=== PATIENT | male | born 1960 | race Caucasian/White ===

== ENCOUNTER 2024-06-19 11:09 | Emergency (ER) | payer OTHER, SELFPAY ==
[2024-06-19 11:11] VITALS: BP 155/84
--- NOTE | 2024-06-19 13:17 | ED.GENMED ---
History of Present Illness
General
Chief Complaint: Musculo-Skeletal Complaint
Source: patient
Exam Limitations: none
Time Seen by Provider: 06/19/24 12:22
Nursing documentation reviewed up to this point in time: agreed with
History of Present Illness
History of Present Illness:
Patient is a 64-year-old male who presents to the ER for evaluation. Patient slipped onto asphalt yesterday and landed on his left knee but twisted his right knee and right leg. He complains of pain to the right medial knee that radiates to his
right thigh. He complains of pain to the right medial thigh and can barely walk. He did something similar to this a couple weeks ago and was prescribed meloxicam Tylenol with codeine and Flexeril. He did take the Tylenol with codeine this morning
and Flexeril but did not take the meloxicam.
Past History
Past History
ED Past Medical History: HTN
Social History
Tobacco: Smoker
Review of Systems
Review of Systems
Allergies reviewed?: Yes
All Other Systems: ROS reviewed and negative except as documented in HPI and ROS
Constitutional: Reports no symptoms
Musculoskeletal: Reports other (Right knee pain, thigh pain)
Skin: Reports no symptoms
Neurological: Reports no symptoms
Phy Exam
General Physical Exam
General Presentation: no apparent distress
General age: appears stated age
General Skin: warm and dry
General Mental: alert
Neurological Exam
Neurological Exam: alert and oriented x3
Musculoskeletal Exam
Musculoskeletal Exam: other (Right lower extremity strong pulses mild swelling to right knee tender along the medial aspect pain with flexion pain with lifting leg up tender along the medial aspect of the right thigh)
Skin Exam
Skin Exam: normal color and warm/dry
Psychiatric Exam
Psychiatric Exam: normal mood/affect
Course
Orders/Labs/Results
Orders:
Orders
06/19/24 11:15
Knee, Right 4 or More Views [CR Knee- Right 4 Or More View*] Urgent
Comment:
Reason For Exam: pain after a fall
06/19/24 13:17
Femur, Right 2 View [CR Femur - Right Min 2 Vw] Urgent
Comment:
Reason For Exam: trauma
06/19/24 13:19
Ketorolac [Toradol] 30 mg IM NOW STA
06/19/24 14:55
Knee Immobilizer Right-Treatme ONCE
Vital Signs
Initial and Last Documented VS:
Initial Vital Signs
Temp Pulse Resp BP Pulse Ox
98.2 F 72 18 155/84 97
06/19/24 11:11 06/19/24 11:11 06/19/24 11:11 06/19/24 11:11 06/19/24 11:11
Last Documented Vital Signs
Temp Pulse Resp BP Pulse Ox
98.2 F 72 18 155/84 97
06/19/24 11:11 06/19/24 11:11 06/19/24 11:11 06/19/24 11:11 06/19/24 11:11
MDM/Problems Addressed
Differential Diagnosis Includes:
not limited to: Knee strain muscle strain less likely fracture
MDM/Problems Addressed:
Symptoms are consistent with a strain of right thigh. There is no obvious swelling to the thigh. The patient complains of some knee pain most of his pain is in the thigh. X-rays of knees and femur were done. X-ray of the knee shows mild
suprapatellar patellar joint effusion no acute findings on femur x-ray. Patient was given IM Toradol here which did improve symptoms. He is able to bear weight will DC with immobilizer for support he does have a prescription for meloxicam as well
as pain medication and Flexeril as needed. He wishes to follow-up with his program specialist at [facility].
*Critical Care Note
Total Time (30-74mins, 75-104mins- exclusive of procedures): Not Applicable
ED Attending Note
-
Portions of this chart may have been created with voice recognition software.� Occasional wrong word or��sound alike� substitutions may have occurred due to the inherent limitations of voice recognition software.
Discharge Plan
Departure
Patient Disposition: Home (Routine Discharge)
Date of Disposition: 06/19/24
Time of Disposition: 15:38
Patient with high blood pressure during this ER visit?: Yes
Condition: Fair
Covid-19: Not Applicable
Discharge Problem:
Acute leg pain, Muscle strain of thigh
Instructions: Knee Immobilizer (DC), Lower Extremity Muscle Strain (DC)
Prescriptions:
No Action
lisinopril 10 mg Tablet
10 mg PO DAILY
escitalopram oxalate 10 mg Tablet
10 mg PO DAILY
lidocain-me.kykvzqc-azrx-xgbzn 4-20-0.025-5 % Adhesive Patch,Medicated
1 patch TOPICAL PRN PRN (Reason: for feet and face pain)
amitriptyline
50 mg PO DAILY
gabapentin
2,400 mg PO HS
Referrals:
Jared Linares MD [Family Provider] -
Activity Restrictions/Additional Instructions:
As discussed ice the affected area for the next 24 hours 20 minutes at a time several times a day. Keep elevated as much as possible use a cane for support. Wear immobilizer for support remove at night while sleeping. You may continue to take
your meloxicam(which is your anti-inflammatory) or you may stop and switch to Motrin/ibuprofen 600 mg every 8 hours with food.
In addition you may take your pain medication as needed
Follow-up with your orthopedic doctor next week .Call to make an appointment. return if any worsening of symptoms
Discharge Date and Time
Print Language: DIVEHI
[2024-06-19] MEDS: TORADOL 30 MG IM (13:32)
[2024-06-19 16:25] VITALS: BP 136/83
== END 2024-06-19 16:29 | disposition home or self-care (01) ==
LOC: EMR 11:09
PROVIDERS: EMERGENCY PHYSICIAN Student in an Organized Health Care Education/Training Program; FAMILY PHYSICIAN Family Medicine
DX: S76.919A Strain of unspecified muscles, fascia and tendons at thigh level, unspecified thigh, initial encounter (principal); W01.0XXA Fall on same level from slipping, tripping and stumbling without subsequent striking against object, initial encounter; I10 Essential (primary) hypertension; F17.200 Nicotine dependence, unspecified, uncomplicated
CPT/HCPCS: 99283; 96372; 73552; 73564

== ENCOUNTER 2024-09-29 09:23 | Emergency (ER) | payer OTHER, SELFPAY ==
[2024-09-29 09:29] VITALS: BP 152/85
--- NOTE | 2024-09-29 12:06 | ED.GENMED ---
History of Present Illness
General
Chief Complaint: Abdominal Pain
Source: patient
Time Seen by Provider: 09/29/24 11:51
History of Present Illness
History of Present Illness:
64-year-old male with past medical history of TBI, hypertension presenting to the emergency department for evaluation after he was lifting a heavy table 2 days ago and started to feel discomfort into his groin and then noticed a lump yesterday which
has gradually gotten a little bit bigger in size and more painful. Patient contacted primary care provider who recommended patient come to the ER for further evaluation. Patient denies any fevers, vomiting, bowel changes or urinary symptoms. He
does believe that he has had an umbilical hernia repair in the past as well as possible inguinal hernia.
Past History
Past History
ED Past Medical History: HTN and Other (TBI)
ED Past Surgical History: Orthopedic and Other
Social History
Tobacco: Smoker
Alcohol: None
Drug: None
Personal:
Living: with family
Employment: Employed
Review of Systems
Review of Systems
All Other Systems: ROS reviewed and negative except as documented in HPI and ROS
Phy Exam
Physical Exam
Physical Exam:
GENERAL: Alert , in no apparent distress
EYE: conjunctiva clear
Head: Normocephalic atraumatic
NECK: Supple,
ENT: mmm.
LUNGS: no acute respiratory distress
NEUROLOGICAL: Alert and oriented
GENITOURINARY: small inguinal hernia on the left. reducible but tender/painful. No overlying erythema. Unfortunately will spontaneously reoccur after reducing hernia
SKIN: Warm and dry, skin intact.
MUSCULOSKELETAL: well perfused.
PSYCH: Normal and appropriate interaction.
Scores
Heart Failure Risk
Heart Failure Risk Score: Not Applicable
Heart Score for Chest Pain Patients
STEMI patient?: Not applicable
Withdrawal Assessment of Alcohol
Withdrawal Assessment Completed?: Not applicable
Course
Vital Signs
Initial and Last Documented VS:
Initial Vital Signs
Temp Pulse Resp BP Pulse Ox
98.0 F 60 18 152/85 99
09/29/24 09:29 09/29/24 09:29 09/29/24 09:29 09/29/24 09:29 09/29/24 09:29
Last Documented Vital Signs
Temp Pulse Resp BP Pulse Ox
98.0 F 60 18 152/85 99
09/29/24 09:29 09/29/24 09:29 09/29/24 09:29 09/29/24 09:29 09/29/24 09:29
MDM/Problems Addressed
Differential Diagnosis Includes:
Uncomplicated direct versus indirect left inguinal hernia, currently no symptoms to suggest strangulation or incarceration, muscle injury
MDM/Problems Addressed:
64-year-old male presenting to the ER for evaluation at the request of primary care provider for left inguinal hernia. Patient's exam is most consistent with a nonemergent left inguinal hernia. No symptoms to suggest incarceration or
strangulation. Discussed management of hernia with the patient. I reached out to on-call general surgery team who states patient can follow-up as an outpatient. Discussed return precautions and patient is agreeable with this plan.
*Pulse Oximetry
Patient hypoxic: no
*Critical Care Note
Total Time (30-74mins, 75-104mins- exclusive of procedures): Not Applicable
ED Attending Note
-
Portions of this chart may have been created with voice recognition software.� Occasional wrong word or��sound alike� substitutions may have occurred due to the inherent limitations of voice recognition software.
Discharge Plan
Departure
Patient Disposition: Home (Routine Discharge)
Date of Disposition: 09/29/24
Time of Disposition: 12:06
Patient with high blood pressure during this ER visit?: Yes
Discharge Problem:
Hernia, inguinal, left
Instructions: Groin Hernia (DC)
Prescriptions:
No Action
lisinopril 10 mg Tablet
10 mg PO DAILY
escitalopram oxalate 10 mg Tablet
10 mg PO DAILY
lidocain-me.wqdgboa-mndp-dvwhw 4-20-0.025-5 % Adhesive Patch,Medicated
1 patch TOPICAL PRN PRN (Reason: for feet and face pain)
amitriptyline
50 mg PO DAILY
gabapentin
2,400 mg PO HS
Referrals:
Julius Wise MD [Active] - (Surgery - Please call for appointment VIDYA)
Remington Le MD [Family Provider] -
Interventions
Interventions:
*Risk Screen - Suicide Last Done: 09/29/24 09:29
*General Assessment Last Done: 09/29/24 09:29
*Neglect/Abuse Screening Last Done: 09/29/24 09:29
ED- Fall Risk Assessment Last Done: 09/29/24 12:10
*ED COVID-19 Vaccine History Last Done: 09/29/24 12:10
*Nursing Disposition Last Done: 09/29/24 12:10
EO-Dbhjum-Okcivzpymj Assessment Last Done: 09/29/24 12:10
Discharge Date and Time
Discharge Date/Time: 09/29/24 12:10
Print Language: PERSIAN
== END 2024-09-29 12:10 | disposition home or self-care (01) ==
LOC: EMR 09:23
PROVIDERS: EMERGENCY PHYSICIAN Student in an Organized Health Care Education/Training Program; FAMILY PHYSICIAN Family Medicine
DX: K40.90 Unilateral inguinal hernia, without obstruction or gangrene, not specified as recurrent (principal); X50.0XXA Overexertion from strenuous movement or load, initial encounter; I10 Essential (primary) hypertension; F17.200 Nicotine dependence, unspecified, uncomplicated
CPT/HCPCS: 99282

== ENCOUNTER 2024-10-21 06:12 | Day surgery (SDC) | payer OTHER, SELFPAY ==
[2024-10-21] VITALS (8 sets, daily range): BP systolic 119–142; BP diastolic 65–82
[2024-10-21] MEDS: TYLENOL 1000 MG PO (09:18)
[2024-10-21] MEDS: NORMOSOL-R/PLASMALYTE-A 1000 IV (09:19)
--- NOTE | 2024-10-21 09:56 | W.SUR.PREOP ---
Pre-Operative Surgical Note
-
I have examined this patient prior to the performance of the scheduled procedure.
The patient's condition is unchanged from the time of the current History and
Physical and the patient is able to undergo the scheduled procedure.
--- NOTE | 2024-10-21 12:48 | W.IMMPOSTOP ---
Surgical Immed Post Op Note
-
Primary Surgeon: Naresh Stoddard MD
Assisting Surgeon: None
Pre-op Diagnosis: Left inguinal hernia
Post-op Diagnosis: Recurrent left inguinal hernia
Procedure Performed:
1. Robotic recurrent left inguinal hernia repair with mesh
2. Lysis of adhesions
Anesthesia Type: General
Specimen / Cultures: 1. Left cord lipoma
Estimated Blood Loss: 7 cc
Complications: None
Operative Findings: Weakness noted in the direct space. There was a significant amount of sigmoid colon adherent to the peritoneum which was lysed. The preperitoneal space was very scarred in and we did encounter unexpectedly a mesh placed in the
left preperitoneal space consistent with a prior left inguinal repair which the patient had not mentioned preoperatively. There was significant scarring medially over the bladder as well as to the inferior epigastrics. One of the veins had to be
ligated. This was inherent to the dissection and could not be avoided. The patient had a small shallow direct hernia as well as a large cord lipoma that was reduced and resected. Critical view of the MPO could not be fully achieved as the bladder
was significantly scarred to the pubic brim so we did not achieve 2 cm of overlap inferiorly. The MPO was reinforced with a large mid weight Bard 3D max left uncoated polypropylene mesh.
--- NOTE | 2024-10-21 12:52 | OR.RPT ---
Operative Report
Operative Report
Patient Name: Saad Lyles
: 1960
Date of Operation: 10/21/2024
Pre-op Diagnosis: Left inguinal hernia
Post-op Diagnosis: Recurrent left inguinal hernia
Procedure Performed:
1. Robotic recurrent left inguinal hernia repair with mesh (PENNY approach)
2. Lysis of adhesions
Surgeon(s):
Dr. Stoddard
Sales Manager [place](s):
BRIANNA Irby
Anesthesia Type: General
Specimen / Cultures:
1. Left cord lipoma
Estimated Blood Loss: 7 cc
Drains/Lines/Implants: Large 3D Max Bard mid weight uncoated polypropylene mesh
Complications: None
Indication for surgery: This is a 64-year-old male with only prior abdominal surgical history reported as an open umbilical hernia repair with mesh. He was noted to have reducible left inguinal hernia on exam and no obvious scars other than his
periumbilical one in the office. Following review of therapeutic options they have elected to undergo a minimally invasive repair.
Operative Findings: Weakness noted in the direct space. There was a significant amount of sigmoid colon adherent to the peritoneum which was lysed. The preperitoneal space was very scarred in and we did encounter unexpectedly a mesh placed in the
left preperitoneal space consistent with a prior left inguinal repair which the patient had not mentioned preoperatively. There was significant scarring medially over the bladder as well as to the inferior epigastrics. One of the veins had to be
ligated. This was inherent to the dissection and could not be avoided. The patient had a small shallow direct hernia as well as a large cord lipoma that was reduced and resected. Critical view of the MPO could not be fully achieved as the bladder
was significantly scarred to the pubic brim so we did not achieve 2 cm of overlap inferiorly. The MPO was reinforced with a large mid weight Bard 3D max left uncoated polypropylene mesh.
Details of the operation:
The patient was brought to the Operating Room and placed in the supine position with the arms tucked. IV antibiotics were infused and Venodyne stockings placed. Following uneventful induction of general endotracheal anesthesia, an orogastric tube
were placed. The abdomen was prepped and draped in the usual sterile fashion. Additional small incisional scars were noted across the abdomen consistent with her prior laparoscopic procedure. He also had a PEG tube which was noted preoperatively.
The abdomen was entered using a Veress technique which required 1 pass, pneumoperitoneum to 15 mmHg was obtained without difficulty. An 8mm trochar was passed through the abdominal wall roughly 23 cm cephalad to the inguinal canal, taking care to
ensure we were well above his umbilical mesh, which we could readily palpate. We then confirmed that no inadvertent injury was made while passing the trocar or Veress needle. We then placed two additional 8 mm ports in the left upper and right
upper quadrants. We then docked the robot with a Prograsper in the left hand port and monopolar scissors in the right. Upon entry there was a significant adhesions of the sigmoid colon over the left inguinal space though I could make out a small
direct to the weakness. There was no hernia noted on the contralateral side. We began by a carefully lysing the adhesions of the sigmoid colon from the peritoneal wall, this took roughly 20 minutes. We then began by creating a flap at the level
of the ASIS laterally working our way medially to the medial umbilical fold. It was immediately clear that this space had been previously entered as there is a significant amount of scar tissue. As we continued our dissection we encountered
mesh. There was significant amount of adhesions to the surrounding tissue and the direct hernia sac as well as the epigastrics and the bladder medially. It appears as though the mesh had moved or was placed too laterally without good medial
coverage and a cord lipoma had not been removed at his initial operation. Staying onto the mesh and peritoneum we were able to circumferentially dissect down to the underlying spermatic cord and testicular vessels which were preserved and then
medially onto the Kevin's ligament. We were not able to dissect 2 cm below the pubic rami over the bladder as there was significant scar tissue in this area and I was afraid that further dissection would likely result in a injury to the bladder.
There was a very large cord lipoma that was identified reduced and removed. There was a wide but shallow direct defect. No femoral defect was identified. The floor was then reinforced with a large left 3D max Bard mid weight uncoated
polypropylene mesh that was secured to Kevin's ligament with 2-0 Vicryl, and superior laterally. The flap was then closed with a running 2-0 barbed monocryl suture ensuring that the tail was cut flush with the medial fat pad so that no barbs were
exposed. During the closure of the flap an Angiocath was inserted and 20 cc of quarter percent Marcaine was instilled. The area in the flap cavity was then evacuated of air confirming that the mesh was flush and there were no folds. A small rent
in the peritoneum was noted and closed with 2-0 Vicryl. All needles and instruments were then removed and the robot was undocked. The abdomen was then desufflated, and pneumoperitoneum evacuated. All skin sites were then closed with 4-0 Monocryl
followed by Dermabond. Counts were correct and overall, the patient tolerated the procedure well and was taken to the Recovery Room postoperatively in stable condition.
I was the attending physician and performed the procedure with assistance of the MACHINE SCALLOP CUTTER above. I was present for all portions of the case, excluding skin closure.
Naresh Stoddard MD
== END 2024-10-21 15:48 | disposition home or self-care (01) ==
LOC: SDS 06:12
PROVIDERS: ATTENDING PHYSICIAN Surgery
DX: K40.91 Unilateral inguinal hernia, without obstruction or gangrene, recurrent (principal); D17.6 Benign lipomatous neoplasm of spermatic cord; Z93.1 Gastrostomy status; K66.0 Peritoneal adhesions (postprocedural) (postinfection)
CPT/HCPCS: 49651; 88304; 93005; C1781

== ENCOUNTER 2025-04-30 12:58 | Emergency (ER) | payer SELFPAY ==
[2025-04-30 12:59] VITALS: BP 138/101
[2025-04-30 13:44] VITALS: BMI 25.1
[2025-04-30] MEDS: ZOFRAN ODT (ORALLY DISINTEGRATING) 4 MG PO (14:10)
[2025-04-30] MEDS: PERCOCET 5/325 1 TABLET PO (14:10)
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
[2025-04-30 16:36] VITALS: BP 148/100
== END 2025-04-30 16:37 | disposition home or self-care (01) ==
LOC: EMR 12:58
PROVIDERS: EMERGENCY PHYSICIAN Student in an Organized Health Care Education/Training Program; FAMILY PHYSICIAN Family Medicine
DX: R11.2 Nausea with vomiting, unspecified (principal); F07.81 Postconcussional syndrome; I10 Essential (primary) hypertension; F17.200 Nicotine dependence, unspecified, uncomplicated
CPT/HCPCS: 99284; 70450

== ENCOUNTER 2025-06-28 16:58 | Emergency (ER) | payer OTHER, SELFPAY ==
[2025-06-28 17:04] VITALS: BP 125/73
[2025-06-28 17:42] LABS: Hematocrit 42.6 % (39.0-52.0); Hemoglobin 14.2 g/dL (13.0-18.0); Mean Corp Hgb Conc. 33.3 g/dL (33.0-37.0); Mean Corpuscular Volume 88.0 fL (80.0-94.0); Nucleated Red Blood Cells % 0 % (-); Platelet Count 182 10^3/uL (130-400); Red Cell Dist. Width 13.5 % (11.5-14.5)
[2025-06-28 17:46] LABS: ALT (SGPT) 27 U/L (0-50); AST (SGOT) 25 U/L (17-59); Albumin 4.5 g/dl (3.5-5.0); Alkaline Phosphatase 59 U/L (38-126); Blood Urea Nitrogen 16 mg/dl (9-20); Calcium 9.5 mg/dl (8.4-10.2); Carbon Dioxide 26 mmol/L (22-30); Chloride 106 mmol/L (98-107); Glucose 118 mg/dl (70-99); Potassium 4.2 mmol/L (3.5-5.1); Sodium 140 mmol/L (135-145); Total Protein 7.3 g/dl (6.3-8.2); eGFR > 60.00
[2025-06-28 20:00] VITALS: BP 132/78
[2025-06-28 20:58] VITALS: BMI 25.1
[2025-06-28 22:23] VITALS: BP 116/88
[2025-06-28] MEDS: NEURONTIN 300 MG PO (23:24)
[2025-06-28] MEDS: TORADOL 15 MG IV (23:26)
[2025-06-28] MEDS: NSS 1000 IV (23:27)
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
[2025-06-29 01:05] VITALS: BP 103/75
[2025-06-29 02:13] VITALS: BP 117/76
== END 2025-06-29 02:44 | disposition home or self-care (01) ==
LOC: EMR 16:58
PROVIDERS: Emergency Medicine; Physician Assistant; EMERGENCY PHYSICIAN Student in an Organized Health Care Education/Training Program; FAMILY PHYSICIAN Family Medicine
DX: K40.91 Unilateral inguinal hernia, without obstruction or gangrene, recurrent (principal); I10 Essential (primary) hypertension; F32.A Depression, unspecified; F17.200 Nicotine dependence, unspecified, uncomplicated; Z79.899 Other long term (current) drug therapy; Z86.73 Personal history of transient ischemic attack (TIA), and cerebral infarction without residual deficits
CPT/HCPCS: 99284; 96374; 96361; 74177; 80053; 83605; 85025; Q9967

== ENCOUNTER 2025-08-25 06:27 | Day surgery (SDC) | payer OTHER, SELFPAY ==
[2025-08-15 11:29] VITALS: BMI 26.0
[2025-08-25] VITALS (7 sets, daily range): BP systolic 110–127; BP diastolic 61–78; BMI 26.0
--- NOTE | 2025-08-25 08:15 | HP.FOC2 ---
Focused History & Physical
Chief Complaint
HPI:
Chief Complaint: Recurrent left inguinal hernia
HPI / Indication for Planned Procedure: Open recurrent left inguinal hernia repair with mesh.
Relevant Past Medical History: Negative
Relevant Social History: Negative
Relevant Family History: Negative
Relevant Past Surgical History: Negative
Review of Systems
Review of Pertinent Systems: All Systems Negative
Medication
See Medication form for detailed medications: Yes
Medication List (including Herbals & OTC):
lisinopril 10 mg tablet 10 mg PO DAILY 06/18/23
amitriptyline 50 mg tablet 50 mg PO HS 10/13/24
gabapentin 800 mg tablet 2,800 mg PO HS 10/13/24
grape seed extract 50 mg capsule 50 mg PO DAILY 10/13/24
milk thistle 500 mg capsule 500 mg PO DAILY 10/13/24
omega 5-xmr-ucv-fish oil 1,000 mg (120 mg-180 mg) capsule (Fish Oil) 1 cap PO DAILY 10/13/24
bupropion HCl 150 mg 24 hr tablet, extended release 150 mg PO DAILY 08/18/25
Medications Reviewed: Yes
Allergies and Reactions
Patient has Allergies: No
Noted Allergies and Reactions:
Allergy/AdvReac Type Severity Reaction Status Date / Time
No Known Allergies Allergy Verified 08/25/25 08:12
Pertinent Physical Exam
All Other Systems: Negative
Head/Neck: Normal
Diagnosis / Assessment
This is a 65-year-old male who presents with a recurrent left inguinal hernia in the setting of 2 prior MIS repairs. Will plan for an open left inguinal hernia repair with mesh.
Plan / Procedure
This is a 65-year-old male who presents with a recurrent left inguinal hernia in the setting of 2 prior MIS repairs. Will plan for an open left inguinal hernia repair with mesh.
Anesthesia/Sedation to be done by Anesthesia Provider: Yes
[2025-08-25] MEDS: TYLENOL 1000 MG PO (08:21)
[2025-08-25] MEDS: NORMOSOL-R/PLASMALYTE-A 1000 IV (08:35)
--- NOTE | 2025-08-25 10:09 | W.IMMPOSTOP ---
Surgical Immed Post Op Note
-
Primary Surgeon: Naresh Stoddard MD
Assisting Surgeon: None
Pre-op Diagnosis: Recurrent left inguinal hernia
Post-op Diagnosis: Same
Procedure Performed: Open recurrent sliding left inguinal hernia repair with mesh
Anesthesia Type: General
Specimen / Cultures: None
Estimated Blood Loss: 3 cc
Complications: None
Operative Findings: Recurrent left indirect inguinal hernia with a sliding component. This was repaired with a Bard soft 7.5 x 15 cm uncoated polypropylene mesh cut to size and a standard Beth fashion.
--- NOTE | 2025-08-25 10:13 | OR.RPT ---
Operative Report
Operative Report
Patient Name: Saad Lyles
: 1960
Date of Operation: 08/25/2025
Preoperative Diagnosis: Recurrent left inguinal hernia
Postoperative Diagnosis: Recurrent left inguinal hernia, cord lipoma
Procedure(s):
1. Open recurrent left sliding inguinal hernia repair with mesh
2. Excision of lesion of a spermatic cord lipoma ([id number])
Surgeon(s):
Dr. Stoddard
Recreational Director(s):
Marilin Concepcion NP
Anesthesia: General/LMA
Estimated Blood Loss: 3 cc
Urine Output: None
Drains/Lines/Implants: 15x7.5cm Bard Soft uncoated polypropylene Mesh cut to size
Specimen / Cultures:
None
Indication for surgery: The patient has a history of 2 prior minimally invasive left inguinal hernia repairs with mesh complicated by a recurrent bulge and groin pain which was confirmed to be a recurrent left inguinal hernia on CT. Following
review of therapeutic options they elected to undergo an open repair
Operative Findings: Recurrent left indirect inguinal hernia with a sliding component. This was repaired with a Bard soft 7.5 x 15 cm uncoated polypropylene mesh cut to size and a standard Beth fashion.
Details of the operation:
After induction of general anesthesia, the patient was clipped, prepped and draped in the supine position. A team timeout was performed confirming administration of DVT prophylaxis, IV antibiotics and SCDs. The ASIS and pubic tubercle were marked
and an incision was chosen along the course of a skin line. The skin was anesthetized with Lidocaine. An incision was made through the skin line and dissection carried down through subcutaneous tissue and Ifrah's fascia. The superficial epigastric
vein was identified and ligated. A Small Dre wound retractor was used to provide exposure. The external oblique fibers were then divided in the direction of travel. The ilioinguinal nerve was identified and ligated at the level of the internal
bleak. Dissection was carried down to the floor, which revealed the following:
At the site of the indirect (internal) ring, there was a moderate size protrusion of preperitoneal fat, the hernia sac was identified, dissected and reduced off the cord structures. This was found to be sliding inguinal hernia with fat and part of
the colon wall as part of the hernia sac.
A residual cord lipoma was also identified and resected
The direct space, floor of the canal revealed no weakness.
The floor of the canal was then reconstructed by placing a 15 x 7.5 cm Bard soft uncoated polypropylene mesh trimmed to size and secured it in place with interrupted 0-PDS sutures medially at the pubic tubercle, inferiorly along the inguinal
ligament, laterally/superiorly in the conjoint tendon. A slit was made in the mesh just wide enough to accommodate the cord this was also reapproximated with the PDS suture. Care was taken not to injure or entrap any nerves. The external oblique
fibers were then closed using a running 2-0 Vicryl suture. Ifrah's fascia was then closed with interrupted 3-0 Vicryl suture. The skin was closed in layers with interrupted 3-0 vicryl deep dermals followed by a running subcuticular 4-0 Monocryl
followed by dermabond. The patient returned to the Recovery Room in stable condition. Sponge and instrument counts were correct.
I was the attending physician and performed the procedure with assistance of the RN MEDICATION above. The assistance of the RN MEDICATION was required due to the complexity of the procedure. During the procedure Marilin assisted with retraction, resection, and closure
of the wound. I was present for all portions of the case, excluding skin closure.
Naresh Stoddard MD
== END 2025-08-25 12:32 | disposition home or self-care (01) ==
LOC: SDS 06:27
PROVIDERS: ATTENDING PHYSICIAN Surgery; FAMILY PHYSICIAN Family Medicine
DX: K40.91 Unilateral inguinal hernia, without obstruction or gangrene, recurrent (principal)
CPT/HCPCS: 49520; 93005

== ENCOUNTER 2025-09-09 11:02 | Emergency (ER) | payer OTHER, SELFPAY ==
[2025-09-09 11:16] VITALS: BP 116/78
[2025-09-09 12:22] LABS: Hematocrit 45.3 % (39.0-52.0); Hemoglobin 15.3 g/dL (13.0-18.0); Mean Corp Hgb Conc. 33.8 g/dL (33.0-37.0); Mean Corpuscular Volume 89.5 fL (80.0-94.0); Nucleated Red Blood Cells % 0 % (-); Platelet Count 197 10^3/uL (130-400); Red Cell Dist. Width 13.2 % (11.5-14.5)
[2025-09-09 12:35] LABS: ALT (SGPT) 24 U/L (0-50); AST (SGOT) 25 U/L (17-59); Albumin 4.6 g/dl (3.5-5.0); Alkaline Phosphatase 65 U/L (38-126); Blood Urea Nitrogen 19 mg/dl (9-20); Calcium 9.8 mg/dl (8.4-10.2); Carbon Dioxide 28 mmol/L (22-30); Chloride 102 mmol/L (98-107); Glucose 110 mg/dl (70-99); Potassium 4.8 mmol/L (3.5-5.1); Sodium 135 mmol/L (135-145); Total Protein 8.2 g/dl (6.3-8.2); eGFR > 60.00
--- NOTE | 2025-09-09 13:57 | ED.GENMED ---
History of Present Illness
<Ady Madrid DO - Last Filed: 09/09/25 14:04>
General
Chief Complaint: Abdominal Pain
Source: patient and physician
Exam Limitations: none
Time Seen by Provider: 09/09/25 13:17
Nursing documentation reviewed up to this point in time: agreed with
History of Present Illness
History of Present Illness:
65-year-old male inguinal hernia repair apparently popped out a few days ago, seen at surgery clinic referred here for facilitated evaluation lab work CT scan with plan to go to the operating later today no nausea or vomiting, no fevers no blood
thinners
Past History
<Ady Madrid DO - Last Filed: 09/09/25 14:04>
Past History
ED Past Medical History: HTN and Other (TBI)
ED Past Surgical History: Orthopedic and Other
Social History
Tobacco: Smoker
Alcohol: None
Drug: None
Personal:
Living: with family
Employment: Employed
Review of Systems
<Ady Madrid DO - Last Filed: 09/09/25 14:04>
Review of Systems
All Other Systems: Not applicable
Constitutional: Denies fever
EENT: Reports no symptoms
Respiratory: Reports no symptoms
Cardiac: Reports no symptoms
ABD/GI: Reports abdominal pain
: Reports no symptoms
Musculoskeletal: Reports no symptoms
Phy Exam
<Ady Madrid DO - Last Filed: 09/09/25 14:04>
Physical Exam
Physical Exam:
Physical Exam
General: no apparent distress, not acutely ill
Neck: No jaundice
Lungs: no acute respiratory distress.
Abdomen: Tender swollen bulge in the left groin
Neuro: alert and oriented. no focal neurological deficits
Skin: no rash
Psychiatric: well kept. interactive and cooperative
Extremities: no edema.
Course
<Ady Madrid DO - Last Filed: 09/09/25 14:04>
Orders/Labs/Results
Orders:
Orders
09/09/25 12:02
Complete Blood Count/With Diff Urgent
Comprehensive Metabolic Panel Urgent
09/09/25 13:18
CT Abd/pelvis W Iv Cont Urgent
Comment:
Reason For Exam: hernia pain
Abnormal Lab Results
09/09/25
12:02
Abs Immat Gran (auto) 0.1 H 10^3/uL
(0-0.05)
Absolute Monos (auto) 0.7 H 10^3/uL
(0.1-0.6)
Immature Gran % 0.8 H %
(0-0.5)
Glucose 110 H mg/dl
(70-99)
09/09/25 12:02
09/09/25 12:02
Vital Signs
Initial and Last Documented VS:
Initial Vital Signs
Temp Pulse Resp BP Pulse Ox
98.4 F 73 16 116/78 98
09/09/25 11:16 09/09/25 11:16 09/09/25 11:16 09/09/25 11:16 09/09/25 11:16
Last Documented Vital Signs
Temp Pulse Resp BP Pulse Ox
98.4 F 63 16 118/73 98
09/09/25 11:16 09/09/25 15:44 09/09/25 15:44 09/09/25 15:44 09/09/25 15:44
<Bess Duran, NITRATE OPERATOR - Last Filed: 09/09/25 21:03>
Orders/Labs/Results
Orders:
Orders
09/09/25 12:02
Complete Blood Count/With Diff Urgent
Comprehensive Metabolic Panel Urgent
09/09/25 13:18
CT Abd/pelvis W Iv Cont Urgent
Comment:
Reason For Exam: hernia pain
Abnormal Lab Results
09/09/25
12:02
Abs Immat Gran (auto) 0.1 H 10^3/uL
(0-0.05)
Absolute Monos (auto) 0.7 H 10^3/uL
(0.1-0.6)
Immature Gran % 0.8 H %
(0-0.5)
Glucose 110 H mg/dl
(70-99)
09/09/25 12:02
09/09/25 12:02
Vital Signs
Initial and Last Documented VS:
Initial Vital Signs
Temp Pulse Resp BP Pulse Ox
98.4 F 73 16 116/78 98
09/09/25 11:16 09/09/25 11:16 09/09/25 11:16 09/09/25 11:16 09/09/25 11:16
Last Documented Vital Signs
Temp Pulse Resp BP Pulse Ox
98.4 F 63 16 118/73 98
09/09/25 11:16 09/09/25 15:44 09/09/25 15:44 09/09/25 15:44 09/09/25 15:44
<Ady Madird DO - Last Filed: 09/09/25 14:04>
MDM/Problems Addressed
Differential Diagnosis Includes:
Hernia, incarcerated strangulated symptomatic recurrent
MDM/Problems Addressed:
Recurrent hernia
Chronic conditions affecting care: Previous abdomnial surgery
Acute Exacerbation and/or Progression of Chronic Illness: Previous abdomnial surgery
<Ady Madrid DO - Last Filed: 09/09/25 14:04>
*Pulse Oximetry
SaO2: 98
Oxygen Mode of Delivery: Room air
<Bess Duran, NITRATE OPERATOR - Last Filed: 09/09/25 21:03>
*Pulse Oximetry
Patient hypoxic: not evaluated
*Critical Care Note
Total Time (30-74mins, 75-104mins- exclusive of procedures): Not Applicable
ED Attending Note
<Ady Madrid DO - Last Filed: 09/09/25 14:04>
-
Portions of this chart may have been created with voice recognition software.� Occasional wrong word or��sound alike� substitutions may have occurred due to the inherent limitations of voice recognition software.
Discharge Plan
Departure
Patient Disposition: Home (Routine Discharge)
Date of Disposition: 09/09/25
Time of Disposition: 14:04
Patient with high blood pressure during this ER visit?: No
Condition: Good
Discharge Problem:
Inguinal hernia, Seroma after procedure
Instructions: Seroma
Prescriptions:
No Action
lisinopril 10 mg Tablet
10 mg PO DAILY
gabapentin 800 mg Tablet
1,600 mg PO HS
milk thistle 500 mg Capsule
500 mg PO DAILY
grape seed extract 50 mg Capsule
50 mg PO DAILY
omega 6-lvw-huf-fish oil [Fish Oil] 1,000 (120-180) mg Capsule
1 cap PO DAILY
bupropion HCl 150 mg tablet extended release 24 hr
150 mg PO DAILY
Referrals:
Remington Le MD [Family Provider, Family Practice]
Interventions
Interventions:
*Risk Screen - Suicide Last Done: 09/09/25 11:18
*General Assessment Last Done: 09/09/25 13:34
*Neglect/Abuse Screening Last Done: 09/09/25 11:18
*ED- Fall Risk Assessment Last Done: 09/09/25 13:34
*ED COVID-19 Vaccine History Last Done: 09/09/25 13:34
*ED Influenza Vaccine History Last Done: 09/09/25 13:34
*Nursing Disposition Last Done: 09/09/25 17:22
VC-Vrtxwx-Acoxlxvnvk Assessment Last Done: 09/09/25 13:34
Discharge Date and Time
Discharge Date/Time: 09/09/25 17:27
Print Language: THAI
--- NOTE | 2025-09-09 15:27 | CM ---
Patient seen at bedside in ED. Patient states that he lives in a one story home with his step brother renting a room but he frequently goes to his girlfriend's home that is a 2 story home. Girlfriend Chen is a retired nurse and helps him as needed.
Patient has a cane that he uses. Patient has been going to vestibular and Occupational therapy in [facility]. Patient uses the [facility] in [place] and his PCP is Dr. Le. Patient plan is for discharge home with Chen to assist. CM will
continue to follow for discharge planning needs.
Plan; home with outpatient therapy vs home with VN; pending medical treatment plan
[2025-09-09 15:44] VITALS: BP 118/73
--- NOTE | 2025-09-09 17:03 | W.PN.SURGUPD ---
Surgical Update
Surgical Update
CT reviewed with the radiologist as well as the patient, large seroma, no bowel. As this is asymptomatic we will manage expectantly.
Patient already has follow-up with me scheduled.
Findings discussed with the ED staff, cleared from a surgery perspective for discharge
Dispo per ED
== END 2025-09-09 17:27 | disposition home or self-care (01) ==
LOC: EMR 11:02
PROVIDERS: Emergency Medicine; EMERGENCY PHYSICIAN Emergency Medicine; FAMILY PHYSICIAN Family Medicine
DX: K40.90 Unilateral inguinal hernia, without obstruction or gangrene, not specified as recurrent (principal); L76.34 Postprocedural seroma of skin and subcutaneous tissue following other procedure; I10 Essential (primary) hypertension; F17.200 Nicotine dependence, unspecified, uncomplicated; Z87.820 Personal history of traumatic brain injury
CPT/HCPCS: 99284; 74177; 80053; 85025; Q9967